=== PATIENT | female | born 1930 | race Caucasian/White ===

== ENCOUNTER → 2018-07-23 13:43 | Outpatient (CLI) | payer MEDICARE, OTHER ==
[2013-04-21 13:51] VITALS: BMI 28.4
[~2018-07-23 13:43] MED LIST: CELEXA20 MG PO; CRESTOR10 MG PO; LEVOTHROID75 MCG PO; LISINOPRIL10 MG PO; TENORMIN25 MG PO
== END | disposition home or self-care (01) ==
LOC: D.HCCARDIO 13:43
PROVIDERS: ATTEND Internal Medicine Cardiovascular Disease
DX: I07.1 Rheumatic tricuspid insufficiency (principal)